=== PATIENT | male | born 1965 | race Caucasian/White ===

== ENCOUNTER 2024-12-15 06:01 | Emergency (ER) | payer BC ==
[2024-12-15 06:19] VITALS: TEMP 98.7
[2024-12-15] MEDS ORDERED: solu-MEDROL ONE (06:22)
[2024-12-15] MEDS ORDERED: Sterile H2O 10 ml IJ ONE (06:22)
[2024-12-15] MEDS: solu-MEDROL 125 MG, Sterile H2O 10 ml 2 ML IV ONE (06:23)
[2024-12-15] MEDS ORDERED: DUONEB 0.5-3 MG/3 ml Neb IH ONE (06:27)
[2024-12-15] MEDS: DUONEB 0.5-3 MG/3 ml Neb IH ONE (06:31)
--- NOTE | 2024-12-15 06:37 | ERPHSYRPT ---
- History of Present Illness Source: patient Exam Limitations: no limitations Patient Subjective Stated Complaint: pt states he has been sick for 3 weeks. pt states that he woke up this morning unable to breath Triage Nursing Assessment: pt ambulated into the er; pt is axo x4; pt is tripod position; c/o SOB; wheezing in all lobes anterior and posterior; coarse lung sounds in yolie lower lobes; dry hacking cough present; skin PDW; denies pain; hypertensive; tachycardic; +1 edema to BLE Hx Tetanus, Diphtheria Vaccination/Date Given: Yes Hx Influenza Vaccination/Date Given: No Hx Pneumococcal Vaccination/Date Given: Yes <JESENIA OWENS - Last Filed: 12/15/24 06:32> <MARYSOL ANAND - Last Filed: 12/15/24 09:22> - History of Present Illness Time Seen by Provider: 12/15/24 06:07 Physician History: 59 years old male with history of tobacco use/COPD is/hypertension/hyperlipidemia presented in the ER with 3 weeks history of cough congestion symptoms for which she has been evaluated multiple times outpatient and finished 2 rounds of antibiotics and steroids. Patient reports he woke up this morning with worsening cough minimal productive and was not able to get enough air. He got a breathing treatment prior to arrival with no significant relief. Patient is tachypneic and mildly tachycardic on presentation. Denies any fever or chills. No lower extremity swellings. No history of coronary a rtery disease/CHF. No known sick contact. (JESENIA OWENS) Allergies/Adverse Reactions: No Known Drug Allergies Allergy (Unverified 12/15/24 06:04) Home Medications: Albuterol Sulfate [Albuterol Sulfate Hfa] 8.5 gm IH Q6HPRN PRN 12/15/24 [History] Atorvastatin Calcium 40 mg PO DAILY 12/15/24 [History] Hydrochlorothiazide 25 mg [hydroDIURIL 25 MG] 25 mg PO DAILY 12/15/24 [History] Ipratropium/Albuterol Sulfate [Iprat-Albut 0.5-3(2.5) mg/3 ml] 1 neb IH Q6HPRN PRN 12/15/24 [History] Losartan Potassium 100 mg PO DAILY 12/15/24 [History] Metformin HCl 500 mg [Glucophage 500 MG] 500 mg PO BIDWM 12/15/24 [History] Prednisone 20 mg [Deltasone 20 mg] 20 mg PO DAILY 12/15/24 [History] dilTIAZem HCL [Diltiazem ER] 240 mg PO DAILY 12/15/24 [History] Travel Risk - International Travel Have you traveled outside of the country in past 3 weeks: No - Emerging Infectious Disease Are you exhibiting symptoms associated with any current EIDs: Yes Symptoms: Cough: New Onset, Shortness of Breath <JESENIA OWENS - Last Filed: 12/15/24 06:32> - Review of Systems Constitutional: No Symptoms Eyes: No Symptoms Ears, Nose, & Throat: No Symptoms Respiratory: Cough, Dyspnea, Wheezing Cardiac: No Symptoms Abdominal/Gastrointestinal: No Symptoms Genitourinary Symptoms: No Symptoms Musculoskeletal: No Symptoms Skin: No Symptoms Psychological: No Symptoms Endocrine: No Symptoms Hematologic/Lymphatic: No Symptoms <JESENIA OWENS - Last Filed: 12/15/24 06:32> - Past Medical History Pertinent Past Medical History: Yes Neurological History: No Pertinent History Cardiac History: High Cholesterol, Hypertension Respiratory History: COPD Endocrine Medical History: Diabetes Type II Musculoskeletal History: No Pertinent History GI Medical History: No Pertinent History History: No Pertinent History Psycho-Social History: No Pertinent History Male Reproductive Disorders: No Pertinent History - Past Surgical History Past Surgical History: Yes - Social History Smoking Status: Current every day smoker Exposure to second hand smoke: Yes Drug Use: none - Social Determinants of Health Will the patient participate in the screening: Yes Do you worry about a steady place to live?: No Do you have any problems with any of the following?: No known problems In the past 12 months,have you had to go without utilities?: No Transportation Issues: No Has anyone in your support network made you feel unsafe?: No Have you or anyone in your house had to go w/o enough food: No <JESENIA OWENS - Last Filed: 12/15/24 06:32> - Physical Exam General Appearance: no apparent distress, alert Eye Exam: PERRL/EOMI Ears, Nose, Throat Exam: hearing grossly normal, normal ENT inspection, normal pharynx Neck Exam: normal inspection, supple, full range of motion Respiratory Exam: diminished breath sounds, rhonchi, wheezing Cardiovascular/Chest Exam: normal heart sounds, tachycardia Abdominal/Gastrointestinal Exam: soft, normal bowel sounds, No tenderness Extremity Exam: non-tender, normal range of motion Neurologic Exam: alert, oriented x 3, cooperative Skin Exam: normal color SpO2 Interpretation: normal SpO2: 96 O2 Delivery: Room Air <BRANDON OWENSMIR - Last Filed: 12/15/24 06:32> - Nursing Vital Signs Nursing Vital Signs: Initial Vital Signs Temperature 98.7 F 12/15/24 06:04 Pulse Rate 119 H 12/15/24 06:04 Respiratory Rate 24 12/15/24 06:04 Blood Pressure 176/107 12/15/24 06:04 O2 Sat by Pulse Oximetry 96 12/15/24 06:04 Pain Scale Pain Intensity 0 - Course EKG Interpreted by Me: RATE ([id number]), Sinus Tach, Left Eunice Deviation, Q-wave, Non- specific ST Changes <BRANDON OWENSMIR - Last Filed: 12/15/24 06:32> Ordered Tests: Active Orders 24 hr Category Date Time Status EKG-ER Only STAT Care 12/15/24 06:31 Active IV Insertion STAT Care 12/15/24 06:31 Active CHEST 1 VIEW (PORTABLE) Stat Exams 12/15/24 06:46 Completed BLOOD CULTURE Stat Lab 12/15/24 06:31 Ordered CBC W DIFF Stat Lab 12/15/24 06:30 Completed CMP Stat Lab 12/15/24 06:30 Completed Lactic Acid Stat Lab 12/15/24 06:31 Completed Lactic Acid Stat Lab 12/15/24 08:45 Received MAGNESIUM Stat Lab 12/15/24 06:30 Completed NT PRO BNPII Stat Lab 12/15/24 06:30 Completed TROPONIN Q4H Lab 12/15/24 06:30 Completed TROPONIN Q4H Lab 12/15/24 10:45 Ordered TROPONIN Q4H Lab 12/15/24 14:45 Ordered Medication Summary Discontinued Medications Generic Name Dose Route Start Last Admin Trade Name Freq PRN Reason Stop Dose Admin Hydrocodone Bitart/Acetaminophen 10 ml 12/15/24 06:34 12/15/24 06:42 Hydrocodone/Acetaminophen 5 Ml Udcup PO 12/15/24 06:35 10 ml STAT STA Administration Hydrocodone Bitart/Acetaminophen Confirm 12/15/24 06:42 Hydrocodone/Acetaminophen 5 Ml Udcup Administered 12/15/24 06:43 Dose 10 ml .ROUTE .STK-MED ONE Albuterol/Ipratropium 3 ml 12/15/24 06:21 12/15/24 06:31 Ipratropium/Albuterol Sulfate 3 Ml Ampul.Neb IH 12/15/24 06:22 3 ml STAT ONE Administration Albuterol/Ipratropium Confirm 12/15/24 06:27 Ipratropium/Albuterol Sulfate 3 Ml Ampul.Neb Administered 12/15/24 06:28 Dose 3 ml IH .STK-MED ONE Methylprednisolone Sodium 0 mg 12/15/24 06:21 12/15/24 06:23 Succinate 125 mg/ Sterile IV 12/15/24 06:22 125 mg Water 2 ml STAT ONE Administration Methylprednisolone Sodium Succinate Confirm 12/15/24 06:22 Methylprednis Sod Succ 125 Mg/2 Ml Vial Administered 12/15/24 06:23 Dose 125 mg .ROUTE .STK-MED ONE Sterile Water Confirm 12/15/24 06:22 Water For Injection,Sterile 10 Ml Vial Administered 12/15/24 06:23 Dose 10 ml IJ .STK-MED ONE Lab/Rad Data: Laboratory Result Diagrams 12/15/24 06:30 12/15/24 06:30 Laboratory Results 12/15/24 12/15/24 12/15/24 Range/Units 07:25 06:31 06:30 WBC (4.23-9.07) x10^3/uL RBC (4.63-6.08) x10^6/uL Hgb (13.7-17.5) g/dL Hct (40.1-51.0) % MCV (79.0-92.2) fL MCH (25.7-32.2) pg MCHC (32.3-36.5) g/dL RDW (11.6-14.4) % Plt Count (163-337) x10^3/uL MPV (9.4-12.4) fL Gran % (34.0-67.9) % Immature Gran % (Auto) (0.001-0.429) % Nucleat RBC Rel Count (0.00-0.2) % Eos # (Auto) (0.04-0.54) x10^3/uL Immature Gran # (Auto) (0.001-0.031) x10^3u/L Absolute Lymphs (auto) (1.32-3.57) x10^3/uL Absolute Monos (auto) (0.30-0.82) x10^3/uL Absolute Nucleated RBC (0.00-0.012) x10^3u/L Lymphocytes % (21.8-53.1) % Monocytes % (5.3-12.2) % Eosinophils % (0.8-7.0) % Basophils % (0.2-1.2) % Absolute Granulocytes (1.78-5.38) x10^3/uL Basophils # (0.01-0.08) x10^3/uL Sodium (135-145) mmol/L Potassium (3.5-5.1) mmol/L Chloride (98-107) mmol/L Carbon Dioxide (22-30) mmol/L Anion Gap (5-15) MEQ/L BUN (9-20) mg/dL Creatinine (0.66-1.25) mg/dL Estimated GFR ML/MIN Glucose (74-106) mg/dL Lactic Acid 2.4 H (0.4-2.0) Calcium (8.4-10.2) mg/dL Magnesium (1.6-2.3) mg/dL Total Bilirubin (0.2-1.3) mg/dL AST (17-59) U/L ALT (0-50) U/L Alkaline Phosphatase (38-126) U/L Troponin I 0.012 (0.000-0.033) ng/mL NT-Pro-B Natriuret Pep (<300) pg/mL Serum Total Protein (6.3-8.2) g/dL Albumin (3.5-5.0) g/dL Influenza Type A Ag NEGATIVE (NEGATIVE) Influenza Type B Ag NEGATIVE (NEGATIVE) RSV (PCR) NEGATIVE (NEGATIVE) SARS-CoV-2 (PCR) NEGATIVE (NEGATIVE) 12/15/24 12/15/24 Range/Units 06:30 06:30 WBC 12.7 H (4.23-9.07) x10^3/uL RBC 5.05 (4.63-6.08) x10^6/uL Hgb 14.8 (13.7-17.5) g/dL Hct 44.2 (40.1-51.0) % MCV 87.5 (79.0-92.2) fL MCH 29.3 (25.7-32.2) pg MCHC 33.5 (32.3-36.5) g/dL RDW 12.3 (11.6-14.4) % Plt Count 460 H (163-337) x10^3/uL MPV 9.3 L (9.4-12.4) fL Gran % 61.0 (34.0-67.9) % Immature Gran % (Auto) 0.5 H (0.001-0.429) % Nucleat RBC Rel Count 0.0 (0.00-0.2) % Eos # (Auto) 0.17 (0.04-0.54) x10^3/uL Immature Gran # (Auto) 0.06 H (0.001-0.031) x10^3u/L Absolute Lymphs (auto) 3.58 H (1.32-3.57) x10^3/uL Absolute Monos (auto) 1.08 H (0.30-0.82) x10^3/uL Absolute Nucleated RBC 0.00 (0.00-0.012) x10^3u/L Lymphocytes % 28.3 (21.8-53.1) % Monocytes % 8.5 (5.3-12.2) % Eosinophils % 1.3 (0.8-7.0) % Basophils % 0.4 (0.2-1.2) % Absolute Granulocytes 7.71 H (1.78-5.38) x10^3/uL Basophils # 0.05 (0.01-0.08) x10^3/uL Sodium 138 (135-145) mmol/L Potassium 4.1 (3.5-5.1) mmol/L Chloride 98 (98-107) mmol/L Carbon Dioxide 30 (22-30) mmol/L Anion Gap 13.6 (5-15) MEQ/L BUN 16 (9-20) mg/dL Creatinine 0.74 (0.66-1.25) mg/dL Estimated GFR 103.7 ML/MIN Glucose 154 H (74-106) mg/dL Lactic Acid (0.4-2.0) Calcium 10.9 H (8.4-10.2) mg/dL Magnesium 2.0 (1.6-2.3) mg/dL Total Bilirubin 0.60 (0.2-1.3) mg/dL AST 29 (17-59) U/L ALT 36 (0-50) U/L Alkaline Phosphatase 55 (38-126) U/L Troponin I (0.000-0.033) ng/mL NT-Pro-B Natriuret Pep 134 (<300) pg/mL Serum Total Protein 6.4 (6.3-8.2) g/dL Albumin 4.2 (3.5-5.0) g/dL Influenza Type A Ag (NEGATIVE) Influenza Type B Ag (NEGATIVE) RSV (PCR) (NEGATIVE) SARS-CoV-2 (PCR) (NEGATIVE) <JESENIA OWENS - Last Filed: 12/15/24 06:32> - Progress Air Movement: good Blood Culture(s) Obtained: No Antibiotics given: No Counseled pt/family regarding: lab results, diagnosis, need for follow-up, rad results <MARYSOL ANAND - Last Filed: 12/15/24 09:22> - Progress Progress Note: 12/15/24 06:57 59 years old with history of tobacco use is evaluated for worsening cough and difficulty breathing, has finished 2 rounds of antibiotics and steroid outpatient. Patient is still wheezing on presentation, given neb treatment along with steroid and liquid hydrocodone. Workup is pending, care is transferred to Dr. Anand at end of my shift for reevaluation and final disposition. (JESENIA OWENS) 12/15/24 09:20 I reviewed the patient's laboratory data results. There is no evidence of any acute, emergent medical issue based on the laboratory data results. The chest x-ray was interpreted by the radiologist and I reviewed the impression. There is no evidence for any acute cardiopulmonary process. I reexamined and reevaluated this patient. He does not have chest pain. He states that he is breathing much better since his admission here in the emergency department. He feels safe and improved and wants to go home. I think he is medically stable enough to be discharged to home. He will continue his nebulizer treatments every 4 hours while awake and I will remotely send a prescription for antibiotics and steroids to his pharmacy. (MARYSOL ANAND) Medical Desision Making - Diagnostic Testing Diagnostic test were ordered, analyzed, and reviewed by me: Yes Radiological Interpretation: Reviewed by me, Teleradiologist Report - Risk of complications The pt has a mod risk of morbidity or mortality based on: Need for prescription drug management <MARYSOL ANAND - Last Filed: 12/15/24 09:22> <JESENIA OWENS - Last Filed: 12/15/24 06:32> - Departure Departure Disposition: Home Critical Care Time: No <MARYSOL ANAND - Last Filed: 12/15/24 09:22> - Departure Clinical Impression: COPD exacerbation Condition: Stable Instructions: Chronic Obstructive Pulmonary Disease Additional Instructions: Drink plenty of fluids. Avoid exposure to any type of smoke. Use your nebulizer treatments every 4 hours while awake. Take your steroids, antibiotics and the other medication as prescribed. Return to the emergency department if your symptoms recur. Call your primary care provider today, 12/15/2024, to make arrangements for follow-up appointment for further evaluation and management and to be seen next week. Prescriptions: Cefdinir 300 mg PO BID #14 cap Prednisone 10 mg [Deltasone 10 mg] 10 mg PO TID #12 tablet
[2024-12-15] MEDS ORDERED: HYDROCODONE-ACETAMIN 2.5-108/5 ML SOLUTION ONE (06:42)
[2024-12-15] MEDS: HYDROCODONE-ACETAMIN 2.5-108/5 ML SOLUTION PO STA (06:42)
[2024-12-15 06:48] LABS: Absolute Neutrophil Ct (ANC) 7.71 x10^3/uL (1.78-5.38); BASOPHIL % 0.4 % (0.2-1.2); Basophil (Absolute #) 0.05 x10^3/uL (0.01-0.08); Eosinophil % 1.3 % (0.8-7.0); Eosinophil (Absolute #) 0.17 x10^3/uL (0.04-0.54); Hematocrit 44.2 % (40.1-51.0); Hemoglobin 14.8 g/dL (13.7-17.5); IMMATURE GRAN # 0.06 x10^3u/L (0.001-0.031); IMMATURE GRAN % 0.5 % (0.001-0.429); Lymphocyte (Absolute #) 3.58 x10^3/uL (1.32-3.57); Lymphocytes % 28.3 % (21.8-53.1); Mean Cell Volume 87.5 fL (79.0-92.2); Mean Corpuscular Hemoglobin 29.3 pg (25.7-32.2); Mean Corpuscular Hgb Concent. 33.5 g/dL (32.3-36.5); Mean Platelet Volume 9.3 fL (9.4-12.4); Monocyte (Absolute #) 1.08 x10^3/uL (0.30-0.82); Monocytes % 8.5 % (5.3-12.2); Platelet Count 460 x10^3/uL (163-337); Red Blood Count 5.05 x10^6/uL (4.63-6.08); Red Cell Distribution Width 12.3 % (11.6-14.4); White Blood Count 12.7 x10^3/uL (4.23-9.07)
[2024-12-15 07:06] LABS: ALBUMIN 4.2 g/dL (3.5-5.0); ANION GAP 13.6 MEQ/L (5-15); BILIRUBIN,TOTAL 0.6 mg/dL (0.2-1.3); Calcium 10.9 mg/dL (8.4-10.2); Creatinine 1 0.74 mg/dL (0.66-1.25); EST GLOMERULAR FILTRATION RATE 103.7 ML/MIN; Potassium 4.1 mmol/L (3.5-5.1); Total Protein 6.4 g/dL (6.3-8.2)
[2024-12-15 07:46] LABS: INFLUENZA A NEGATIVE (NEGATIVE); INFLUENZA B NEGATIVE (NEGATIVE); RESPIRATORY SYNCTIAL VIRUS NEGATIVE (NEGATIVE); SARS-CoV-2 Xpert Express NEGATIVE (NEGATIVE)
--- NOTE | 2024-12-15 08:59 | XRAY ---
Indication: Short of breath. Comparison: None Portable chest hyperinflated and clear. Heart not enlarged. Bony thorax intact with mild degenerative changes and old left 7-9 rib fractures. No acute findings.
[2024-12-15 09:43] VITALS: BP 164/92; PULSE 80; RESP 18; O2SAT 94
== END 2024-12-15 09:46 | disposition home or self-care (01) ==
LOC: ED 06:01
DX: J44.1 Chronic obstructive pulmonary disease with (acute) exacerbation (principal); R05.2 Subacute cough; I10 Essential (primary) hypertension; E78.5 Hyperlipidemia, unspecified; E11.9 Type 2 diabetes mellitus without complications; Z79.52 Long term (current) use of systemic steroids; Z79.84 Long term (current) use of oral hypoglycemic drugs; Z79.899 Other long term (current) drug therapy; Z72.0 Tobacco use
CPT/HCPCS: 0241U; 36415; 71045; 80053; 83605; 83735; 83880; 84484; 85025; 87040; 93005; 94640; 96374; 99285; 99284; J2919; A9270-GY